=== PATIENT | female | born 1965 | race Caucasian/White ===

== ENCOUNTER 2024-06-08 15:46 | Inpatient (IN) | payer OTHER, MEDICAID ==
[~2024-06-08] VITALS: Ht 152.4 cm; Wt 129.5 kg
[2024-06-08] MEDS ORDERED: ISOVUE-370 76% 100ML VIAL As Ordered ONE (16:14)
[2024-06-08 16:34] LABS: BASO % 0.4 % (0.0-1.0); EOS % 0.1 % (0.0-3.0); HEMATOCRIT 40.9 % (36.0-47.0); HEMOGLOBIN 13.6 g/dl (12.0-15.5); LYMPH # 1.2 10^3/uL (1.5-5.0); LYMPH % 14.5 % (24.0-44.0); MEAN CORPUSCULAR HEMOGLOBIN 31.5 pg (27.0-33.0); MEAN CORPUSCULAR HGB CONC 33.3 g/dl (32.0-36.5); MEAN CORPUSCULAR VOLUME 94.7 fl (80.0-96.0); MONO # 0.6 10^3/uL (0.0-0.8); NEUTROPHILS # 6.1 10^3/uL (1.5-8.5); NEUTROPHILS % 76.6 % (36.0-66.0); PLATELET COUNT, AUTOMATED 233 10^3/uL (150-450); RED BLOOD COUNT 4.32 10^6/uL (4.00-5.40); WHITE BLOOD COUNT 7.9 10^3/uL (4.0-10.0)
[2024-06-08 16:45] LABS: INR 0.94; PARTIAL THROMBOPLASTIN TIME 26.5 SECONDS (24.8-34.2); PROTHROMBIN TIME 12.3 SECONDS (12.5-14.5)
[2024-06-08] MEDS ORDERED: ATOR40TA75 PO (17:35)
[2024-06-08] MEDS ORDERED: FLUT1BLS5 INH (17:35)
[2024-06-08] MEDS ORDERED: POTA-151 PO (17:35)
[2024-06-08] MEDS ORDERED: SEMA0.252 (17:35)
[2024-06-08] MEDS ORDERED: CYCL7.5T32 PO (17:35)
[2024-06-08] MEDS ORDERED: BRIL90TA PO (17:35)
[2024-06-08] MEDS ORDERED: SPIR-10 PO (17:35)
[2024-06-08] MEDS ORDERED: LEVO137T2 PO (17:35)
[2024-06-08] MEDS ORDERED: ASPI-226 PO (17:35)
[2024-06-08] MEDS ORDERED: ERGO500029 PO (17:35)
[2024-06-08] MEDS ORDERED: METH-1177 PO ×2 (17:35→17:54)
[2024-06-08] MEDS ORDERED: ARIP1TAB6 PO (17:35)
[2024-06-08] MEDS ORDERED: ALBU8.5H INH (17:35)
[2024-06-08] MEDS ORDERED: DIAZ10TA2 PO (17:35)
[2024-06-08] MEDS ORDERED: GABA-1172 PO (17:35)
[2024-06-08] MEDS ORDERED: RAMI5CAP60 PO (17:35)
[2024-06-08] MEDS ORDERED: ZOLO100T PO (17:35)
[2024-06-08] MEDS ORDERED: OMEP40CA5 PO (17:35)
[2024-06-08] MEDS ORDERED: MONT10TA97 PO (17:35)
[2024-06-08] MEDS ORDERED: VENL150C43 PO (17:35)
[2024-06-08] MEDS ORDERED: FOLI1TAB11 PO (17:35)
[2024-06-08] MEDS ORDERED: VENL75CA47 PO (17:35)
[2024-06-08] MEDS ORDERED: CYAN-1 PO (17:35)
[2024-06-08] MEDS ORDERED: SEMA0.5P SQ (17:54)
[2024-06-08] MEDS ORDERED: HOME MED LIST COMPLETE! XX SCH (19:10)
[2024-06-08] MEDS ORDERED: diazePAM 10 MG TAB PO PRN (19:30)
[2024-06-08] MEDS ORDERED: PILL CUTTER 1 EACH XX PRN (19:45)
[2024-06-08 20:03] LABS: HEMOGLOBIN A1c 5.1 % (4.0-6.0)
[2024-06-08 20:09] LABS: INR 0.96; PARTIAL THROMBOPLASTIN TIME 27.3 SECONDS (24.8-34.2); PROTHROMBIN TIME 12.5 SECONDS (12.5-14.5)
[2024-06-08 20:18] LABS: CK-MB VALUE MASS < 1.0 NG/ML (<3.6)
[2024-06-08 20:21] LABS: ALKALINE PHOSPHATASE 121 U/L (46-116); ALT/SGPT 16 U/L (7.0-40); AST/SGOT 10 U/L (<34); BILIRUBIN,DIRECT 0.2 MG/DL (<0.4); BILIRUBIN,TOTAL 0.6 MG/DL (0.3-1.2); CHOLESTEROL LEVEL 146 MG/DL (<200); CHOLESTEROL RISK RATIO 2.05 (<5); CPK CREATINE PHOSPHOKINASE 97 U/L (34-145); HDL CHOLESTEROL 71.1 MG/DL (>40); LDL CHOLESTEROL 58.9 MG/DL (<100); MB/CK RELATIVE INDEX 1.03 (< OR =4); NON-HDL-C 74.9 MG/DL; TOTAL PROTEIN 7.6 G/DL (5.7-8.2); TRIGLYCERIDES LEVEL 80 MG/DL (<150)
[2024-06-08] MEDS ORDERED: ramipriL 5 MG CAP PO SCH (21:00)
[2024-06-08] MEDS ORDERED: ATORVASTATIN 20 MG TAB PO SCH (21:00)
[2024-06-08 21:56] VITALS: BP 151/66; TEMP 97.9; O2SAT 98
[2024-06-08] MEDS: ASPIRIN 81MG ENTERIC TABLET PO SCH (22:06)
[2024-06-08] MEDS: ATORVASTATIN 20 MG TAB PO SCH (22:06)
[2024-06-08] MEDS: CYCLOBENZAPRINE 5MG TABLET PO SCH (22:06)
[2024-06-08] MEDS: SERTRALINE 100 MG TAB PO SCH (22:06)
[2024-06-08] MEDS: METHADONE 10MG TAB PO SCH (22:07)
[2024-06-08] MEDS: MONTELUKAST 10 MG TAB PO SCH (22:07)
[2024-06-08 23:43] VITALS: BP 129/60; TEMP 97; O2SAT 94
[2024-06-09] VITALS (21 sets, daily range): BP systolic 112–134; BP diastolic 56–75; TEMP 97.1–98.1; O2SAT 83–98
[2024-06-09] MEDS: TICAGRELOR 90 MG TABLET (BRILINTA) PO SCH (00:26)
[2024-06-09] MEDS: ACETAMINOPHEN TAB 650MG DOSE (2X325MG) PO ONE (01:19)
[2024-06-09] MEDS: LEVOTHYROXINE 137MCG TABLET (0.137MG) PO SCH (05:53)
[2024-06-09 05:59] LABS: BASO # 0.1 10^3/uL (0.0-0.2); BASO % 0.9 % (0.0-1.0); EOS % 0.2 % (0.0-3.0); HEMATOCRIT 37.2 % (36.0-47.0); HEMOGLOBIN 12.1 g/dl (12.0-15.5); LYMPH # 1.1 10^3/uL (1.5-5.0); MEAN CORPUSCULAR HEMOGLOBIN 30.8 pg (27.0-33.0); MEAN CORPUSCULAR HGB CONC 32.5 g/dl (32.0-36.5); MEAN CORPUSCULAR VOLUME 94.7 fl (80.0-96.0); MONO # 0.5 10^3/uL (0.0-0.8); MONO % 9.7 % (2.0-8.0); NEUTROPHILS # 3.6 10^3/uL (1.5-8.5); NEUTROPHILS % 67.8 % (36.0-66.0); PLATELET COUNT, AUTOMATED 209 10^3/uL (150-450); RED BLOOD COUNT 3.93 10^6/uL (4.00-5.40); WHITE BLOOD COUNT 5.3 10^3/uL (4.0-10.0)
[2024-06-09 06:22] LABS: CREATININE FOR GFR 1.06 MG/DL (0.55-1.30); GLOMERULAR FILTRATION RATE 56.3 (>45); POTASSIUM SERUM 3.8 MMOL/L (3.5-5.1)
[2024-06-09] MEDS: SPIRONOLACTONE 25 MG TAB PO SCH (09:08)
[2024-06-09] MEDS: PANTOPRAZOLE 40MG TAB (PROTONIX) PO SCH (09:08)
[2024-06-09] MEDS: VENLAFAXINE **XR** 75MG CAPSULE PO SCH (09:08)
[2024-06-09] MEDS: GABAPENTIN 300 MG CAP PO PRN (09:11)
[2024-06-09] MEDS: ACETAMINOPHEN 500 MG TAB PO PRN (09:30)
[2024-06-09] MEDS: ALBUTEROL 90 MCG/ACT 8GM HFA INHALER INH PRN (10:51)
[2024-06-09] MEDS: METHADONE 10MG TAB PO SCH (14:18)
[2024-06-09] MEDS: LORazepam 2 MG/ML 1ML VIAL IV STA (14:18)
[2024-06-09] MEDS: NYSTATIN 100,000 UNITS/GM TOPICAL PWD 15GM TOP SCH (21:44)
[2024-06-10] VITALS (10 sets, daily range): BP systolic 99–112; BP diastolic 50–60; TEMP 97–98; O2SAT 91–96
[2024-06-10] MEDS ORDERED: BUTA-198 PO ×2 (08:54→08:58)
[2024-06-10] MEDS: FIORICET TAB PO PRN (09:32)
[2024-06-10] MEDS ORDERED: ATORVASTATIN 20 MG TAB PO SCH (21:00)
== END 2024-06-10 12:32 | disposition home or self-care (01) | DRG 103 ==
LOC: M ED 15:46 → EDBD 15:46 → M ED INP 18:31 → M PCU 21:43
PROVIDERS: ADMIT Student in an Organized Health Care Education/Training Program; ATTEND Student in an Organized Health Care Education/Training Program
PROC: B246ZZZ Ultrasonography of Right and Left Heart (ICD-10-PCS; principal; 2024-06-09)
DX: G43.409 Hemiplegic migraine, not intractable, without status migrainosus (principal); I50.32 Chronic diastolic (congestive) heart failure; G81.91 Hemiplegia, unspecified affecting right dominant side; Z68.43 Body mass index [BMI] 50.0-59.9, adult; I25.10 Atherosclerotic heart disease of native coronary artery without angina pectoris; I11.0 Hypertensive heart disease with heart failure; F39 Unspecified mood [affective] disorder; E66.9 Obesity, unspecified; G89.29 Other chronic pain; J44.9 Chronic obstructive pulmonary disease, unspecified; E03.9 Hypothyroidism, unspecified; R29.810 Facial weakness; K21.9 Gastro-esophageal reflux disease without esophagitis; Z95.5 Presence of coronary angioplasty implant and graft; Z87.891 Personal history of nicotine dependence; Z79.890 Hormone replacement therapy; Z79.82 Long term (current) use of aspirin; Z79.899 Other long term (current) drug therapy; Z88.0 Allergy status to penicillin; Z88.1 Allergy status to other antibiotic agents; Z88.8 Allergy status to other drugs, medicaments and biological substances

== ENCOUNTER → 2024-07-26 | Outpatient (REF) | payer OTHER, MEDICAID ==
[~2024-07-26] MED LIST: ALBU8.5H INH; ARIP1TAB6 PO; ASPI-226 PO; ATOR40TA75 PO; BRIL90TA PO; BUTA-198 PO; CYAN-1 PO; CYCL7.5T32 PO; DIAZ10TA2 PO; ERGO500029 PO; FLUT1BLS5 INH; FOLI1TAB11 PO; GABA-1172 PO; LEVO137T2 PO; METH-1177 PO; MONT10TA97 PO; OMEP40CA5 PO; POTA-151 PO; RAMI5CAP60 PO; SEMA0.252; SEMA0.5P SQ; SPIR-10 PO; VENL150C43 PO; VENL75CA47 PO; ZOLO100T PO
== END ==
LOC: M LAB REF 12:35
PROVIDERS: ATTEND Student in an Organized Health Care Education/Training Program
DX: R30.0 Dysuria (principal)

== ENCOUNTER → 2024-10-22 | Outpatient (REF) | payer MEDICARE, MEDICAID ==
[2024-10-22 19:30] LABS: ALBUMIN 3.5 G/DL (3.2-5.2); ALKALINE PHOSPHATASE 117 U/L (35-104); ALT/SGPT 14 U/L (7.0-40); AST/SGOT 10 U/L (<34); BILIRUBIN,TOTAL 0.3 MG/DL (0.3-1.2); BLOOD UREA NITROGEN 12 MG/DL (9-23); CARBON DIOXIDE LEVEL 29 MMOL/L (20-31); CHLORIDE LEVEL 102 MMOL/L (98-107); CREATININE FOR GFR 0.96 MG/DL (0.55-1.30); GLOMERULAR FILTRATION RATE > 60.0 (>45); GLUCOSE, FASTING 93 MG/DL (74-106); POTASSIUM SERUM 4.4 MMOL/L (3.5-5.1); SODIUM LEVEL 141 MMOL/L (136-145)
[2024-10-22 19:33] LABS: THYROID STIMULATING HORMONE 0.551 uIU/ML (0.55-4.78)
[2024-10-22 19:47] LABS: HEMOGLOBIN A1c 4.9 % (4.0-6.0)
[2024-10-24 05:12] LABS: LDL DIRECT 55 mg/dL (<100)
== END ==
LOC: M LABDRWAD 16:46
PROVIDERS: ATTEND Internal Medicine Cardiovascular Disease
DX: E78.2 Mixed hyperlipidemia (principal); I11.0 Hypertensive heart disease with heart failure; I71.21 Aneurysm of the ascending aorta, without rupture; I69.954 Hemiplegia and hemiparesis following unspecified cerebrovascular disease affecting left non-dominant side; R06.02 Shortness of breath; Z13.29 Encounter for screening for other suspected endocrine disorder; I25.118 Atherosclerotic heart disease of native coronary artery with other forms of angina pectoris; Z79.899 Other long term (current) drug therapy

== ENCOUNTER → 2024-11-04 | Outpatient (CLI) | payer MEDICARE, MEDICAID | LOC: M WHC 11:55 | PROVIDERS: ATTEND Physical Therapist | DX: Z12.31 Encounter for screening mammogram for malignant neoplasm of breast (principal) ==

== ENCOUNTER → 2024-11-17 | Outpatient (REF) | payer MEDICARE, MEDICAID ==
[2024-11-17 14:11] LABS: BASO % 0.5 % (0.0-1.0); EOS % 0.1 % (0.0-3.0); HEMATOCRIT 41.1 % (36.0-47.0); HEMOGLOBIN 13.6 g/dl (12.0-15.5); LYMPH # 1.5 10^3/uL (1.5-5.0); LYMPH % 18.4 % (24.0-44.0); MEAN CORPUSCULAR HEMOGLOBIN 31.2 pg (27.0-33.0); MEAN CORPUSCULAR HGB CONC 33.1 g/dl (32.0-36.5); MEAN CORPUSCULAR VOLUME 94.3 fl (80.0-96.0); MONO # 0.9 10^3/uL (0.0-0.8); MONO % 10.8 % (2.0-8.0); NEUTROPHILS # 5.5 10^3/uL (1.5-8.5); NEUTROPHILS % 69.9 % (36.0-66.0); PLATELET COUNT, AUTOMATED 283 10^3/uL (150-450); RED BLOOD COUNT 4.36 10^6/uL (4.00-5.40); WHITE BLOOD COUNT 7.9 10^3/uL (4.0-10.0)
[2024-11-17 14:45] LABS: BLOOD UREA NITROGEN 11 MG/DL (9-23); CALCIUM LEVEL 9.2 MG/DL (8.3-10.6); CARBON DIOXIDE LEVEL 23 MMOL/L (20-31); CHLORIDE LEVEL 102 MMOL/L (98-107); CREATININE FOR GFR 0.91 MG/DL (0.55-1.30); GLOMERULAR FILTRATION RATE > 60.0 (>45); GLUCOSE, FASTING 96 MG/DL (74-106); POTASSIUM SERUM 4.2 MMOL/L (3.5-5.1); SODIUM LEVEL 138 MMOL/L (136-145)
== END ==
LOC: M LABDRWAD 13:03
PROVIDERS: ATTEND Internal Medicine Cardiovascular Disease
DX: I25.118 Atherosclerotic heart disease of native coronary artery with other forms of angina pectoris (principal); I11.0 Hypertensive heart disease with heart failure; E78.2 Mixed hyperlipidemia

== ENCOUNTER → 2025-01-05 | Outpatient (CLI) | payer MEDICARE, MEDICAID | LOC: M ADAMS 10:34 | PROVIDERS: ATTEND Physical Therapist | DX: M43.16 Spondylolisthesis, lumbar region (principal); Z91.81 History of falling ==

== ENCOUNTER → 2025-03-21 | Outpatient (CLI) | payer MEDICARE, MEDICAID | LOC: M WUC 10:13 | PROVIDERS: ATTEND Nurse Practitioner Family | DX: M43.16 Spondylolisthesis, lumbar region (principal); M47.816 Spondylosis without myelopathy or radiculopathy, lumbar region; M54.50 Low back pain, unspecified; Z79.899 Other long term (current) drug therapy ==

== ENCOUNTER → 2025-04-19 | Outpatient (CLI) | payer MEDICARE, MEDICAID | LOC: M RAD 09:49 | PROVIDERS: ATTEND Physician Assistant | DX: R06.02 Shortness of breath (principal); Z87.891 Personal history of nicotine dependence; I25.10 Atherosclerotic heart disease of native coronary artery without angina pectoris ==

== ENCOUNTER → 2025-05-23 | Outpatient (CLI) | payer MEDICARE, MEDICAID | LOC: M PLAIMG 11:10 | PROVIDERS: ATTEND Physical Therapist | DX: M43.16 Spondylolisthesis, lumbar region (principal); M54.6 Pain in thoracic spine ==